=== PATIENT | female | born 1990 | race Caucasian/White ===

== ENCOUNTER 2021-02-17 12:38 | Inpatient (IN) | payer MEDICAID ==
[~2021-02-17] VITALS: Ht 167.6 cm; Wt 88.1 kg
[2021-02-17] MEDS ORDERED: DOCUSATE 100 MG CAPSULE PO PRN (18:00)
[2021-02-17] MEDS ORDERED: POLYETHYLENE GLYCOL 17 GM PACKET PO PRN (18:00)
[2021-02-17] MEDS ORDERED: BISACODYL 10 MG SUPP PR PRN (18:00)
[2021-02-17] MEDS ORDERED: ONDANSETRON ODT 4 MG PO PRN (18:00)
[2021-02-17 19:30] VITALS: BP 121/80
[2021-02-17] MEDS ORDERED: PLEASE ENTER HEIGHT AND WEIGHT MC SCH (20:00)
[2021-02-17] MEDS: ACETAMINOPHEN 325 MG TABLET PO PRN (20:57)
[2021-02-17 21:59] VITALS: BP 121/80
[2021-02-17] MEDS: INSULIN LISPRO 100 UNITS/ML, PEN SQ-INSULIN SCH (22:02)
[2021-02-18] MEDS ORDERED: DEXTROSE 4 GM TAB.CHEW PO PRN (01:30)
[2021-02-18] MEDS ORDERED: GLUCAGON 1 MG IM PRN (01:30)
[2021-02-18 05:31] LABS: CHOL/HDL RATIO 7.8; CHOLESTEROL, TOTAL 259 mg/dL (140-239); HDL CHOL % 13 % (28-40); HDL CHOLESTEROL (DIRECT) 33 mg/dL (40-60); TRIGLYCERIDES 571 mg/dL (50-200)
[2021-02-18 08:23] VITALS: BP 120/77
[2021-02-18] MEDS: INSULIN LISPRO 100 UNITS/ML, PEN SQ-INSULIN SCH ×4 (09:13→20:32)
[2021-02-18] MEDS: ACETAMINOPHEN 325 MG TABLET PO PRN ×2 (09:19→20:27)
[2021-02-18] MEDS: CARIPRAZINE 1.5 MG CAP PO SCH (14:48)
[2021-02-18 19:14] LABS: MICROSCOPIC AUTO
[2021-02-18 19:26] VITALS: BP 127/76
[2021-02-18] MEDS: metFORMIN XR 500 MG TAB.ER.24H PO SCH (20:25)
[2021-02-18] MEDS ORDERED: INSULIN LISPRO 100 UNITS/ML, PEN SQ-INSULIN SCH (21:00)
[2021-02-18] MEDS: CEFDINIR 300 MG CAPSULE PO SCH (23:19)
[2021-02-19 08:11] VITALS: BP 125/78
[2021-02-19] MEDS: INSULIN LISPRO 100 UNITS/ML, PEN SQ-INSULIN SCH ×4 (08:13→20:08)
[2021-02-19] MEDS: FENOFIBRATE 145 MG TABLET PO SCH (08:14)
[2021-02-19] MEDS: metFORMIN XR 500 MG TAB.ER.24H PO SCH ×2 (08:14→20:06)
[2021-02-19] MEDS: CEFDINIR 300 MG CAPSULE PO SCH ×2 (08:14→20:06)
[2021-02-19] MEDS: CARIPRAZINE 1.5 MG CAP PO SCH (08:16)
[2021-02-19 19:34] VITALS: BP 122/78
[2021-02-20 07:35] VITALS: BP 121/78
[2021-02-20] MEDS: INSULIN LISPRO 100 UNITS/ML, PEN SQ-INSULIN SCH ×2 (07:53→11:28)
[2021-02-20] MEDS ORDERED: CARIPRAZINE 3 MG CAP PO SCH (09:00)
[2021-02-20] MEDS: metFORMIN XR 500 MG TAB.ER.24H PO SCH (09:58)
[2021-02-20] MEDS: FENOFIBRATE 145 MG TABLET PO SCH (09:58)
[2021-02-20] MEDS: CEFDINIR 300 MG CAPSULE PO SCH (09:58)
[2021-02-20] MEDS ORDERED: FENO145T19 PO (12:56)
[2021-02-20] MEDS ORDERED: CARI3CAP PO (12:56)
[2021-02-20] MEDS ORDERED: CEFD300C37 PO (12:56)
[2021-02-20] MEDS ORDERED: METF500T3 PO (12:56)
== END 2021-02-20 14:15 | disposition home or self-care (01) | DRG 885 ==
LOC: 3E 19:45
PROVIDERS: ADMIT Psychiatry & Neurology Psychosomatic Medicine; ATTEND Psychiatry & Neurology Psychosomatic Medicine
DX: F25.1 Schizoaffective disorder, depressive type (principal); R45.851 Suicidal ideations; F14.10 Cocaine abuse, uncomplicated; E66.9 Obesity, unspecified; E11.9 Type 2 diabetes mellitus without complications; E78.1 Pure hyperglyceridemia; Z79.84 Long term (current) use of oral hypoglycemic drugs; Z79.899 Other long term (current) drug therapy; E78.5 Hyperlipidemia, unspecified; Z88.0 Allergy status to penicillin; Z68.31 Body mass index [BMI] 31.0-31.9, adult; F17.210 Nicotine dependence, cigarettes, uncomplicated
CPT/HCPCS: 36415; 71045; 80061; 81001; 82962; 83036; 87086; 93005; J1815